=== PATIENT | female | born 1995 | race African-American/Black ===

== ENCOUNTER 2018-06-03 09:58 | Outpatient (CLI) | payer OTHER ==
[~2018-06-03] VITALS: Ht 170.2 cm; Wt 81.8 kg
[2018-06-03 10:17] VITALS: BP 130/88; PULSE 109; TEMP 97.9
[2018-06-03] MEDS ORDERED: ZANTAC 150MG T150 MG PO (10:20)
[2018-06-03] MEDS ORDERED: CONCEPT DHA1 CAP PO (10:20)
[2018-06-03 10:30] VITALS: BP 122/75; PULSE 106
[2018-06-03 11:00] VITALS: BP 123/82; PULSE 88
[2018-06-03 11:21] VITALS: BP 111/77; PULSE 98
== END 2018-06-03 11:35 | disposition home or self-care (01) ==
LOC: LDRO 09:58 → LDR 10:00 → LDRO 11:35
DX: O42.913 Preterm premature rupture of membranes, unspecified as to length of time between rupture and onset of labor, third trimester (principal); Z3A.33 33 weeks gestation of pregnancy
CPT/HCPCS: OP